=== PATIENT | male | born 1985 | race Caucasian/White ===

== ENCOUNTER 2017-05-23 09:34 | Emergency (ER) | payer BC ==
[2017-05-23 09:58] VITALS: BP 126/71
--- NOTE | 2017-05-23 10:16 | UC ---
Respiratory Complaint HPI - HPI Summary HPI Summary: Pt c/o cough X 3 days. Pt reports cough is worse with recumbent position. Denies fever or chills, SOB or wheezing. - History of Current Complaint Chief Complaint: UCRespiratory Stated Complaint: COUGH Time Seen by Provider: 05/23/17 09:48 Hx Obtained From: Patient Onset/Duration: Gradual Onset, Lasting Days - 3 Timing: Intermittent Episodes Severity Initially: Mild Severity Currently: Mild Character: Cough: Nonproductive Aggravating Factors: Recumbent Position Associated Signs And Symptoms: Positive: URI - Risk Factors Pulmonary Embolism Risk Factors: Negative Cardiac Risk Factors: Negative Pseudomonas Risk Factors: Negative Tuberculosis Risk Factors: Negative - Allergies/Home Medications Allergies/Adverse Reactions: Allergies Allergy/AdvReac Type Severity Reaction Status Date / Time seasonal Allergy Congestion Uncoded 05/23/17 09:58 Home Medications: Home Medications Diphenhydramine HCl [Benadryl Allergy] 25 05/23/17 [History] PMH/Surg Hx/FS Hx/Imm Hx Previously Healthy: Yes Other History Of: Negative For: HIV, Hepatitis B - Surgical History Surgical History: Yes Surgery Procedure, Year, and Place: HERNIA REPAIR - Family History Known Family History: Positive: None Negative: Cardiac Disease, Hypertension - Social History Occupation: Employed Full-time Lives: Alone Alcohol Use: Occasionally Substance Use Type: None Substance Use Comment - Amount & Last Used: HX OF [place] USE-STATES HE NO LONGER USES IT. Smoking Status (MU): Former Smoker Type: Cigarettes Amount Used/How Often: socially Have You Smoked in the Last Year: No When Did the Patient Quit Smoking/Using Tobacco: 1-2 YRS - Immunization History Most Recent Influenza Vaccination: not current Vaccination Up to Date: No Review of Systems Constitutional: Negative Skin: Negative Eyes: Negative ENT: Negative Respiratory: Cough Cardiovascular: Negative Gastrointestinal: Negative Genitourinary: Negative Motor: Negative Neurovascular: Negative Musculoskeletal: Negative Neurological: Negative Psychological: Negative Is Patient Immunocompromised?: No All Other Systems Reviewed And Are Negative: Yes Physical Exam Triage Information Reviewed: Yes Appearance: Well-Appearing Vital Signs: Initial Vital Signs Temp 98.1 F 05/23/17 09:48 Pulse 94 05/23/17 09:48 Resp 18 05/23/17 09:48 BP 126/71 05/23/17 09:48 Pulse Ox 100 05/23/17 09:48 Vital Signs Reviewed: Yes Eye Exam: Normal ENT Exam: Normal Dental Exam: Normal Neck exam: Normal Respiratory Exam: Normal Cardiovascular Exam: Normal Musculoskeletal Exam: Normal Neurological Exam: Normal Psychological Exam: Normal Skin Exam: Normal UC Diagnostic Evaluation - Laboratory O2 Sat by Pulse Oximetry: 100 Respiratory Course/Dx - Differential Dx/Diagnosis Differential Diagnosis/HQI/PQRI: Bronchitis, Other - viral syndrome, cough, reactive airway Provider Diagnoses: viral syndrome. cough Discharge - Discharge Plan Condition: Stable Disposition: HOME Prescriptions: Albuterol HFA INHALER* [Ventolin HFA Inhaler*] 1 - 2 puff INH Q6H PRN #1 mdi PRN Reason: Sob/Wheezing Benzonatate CAP* [Tessalon 100 MG CAP*] 100 mg PO Q8H PRN #30 cap PRN Reason: Cough predniSONE TAB* [Deltasone TAB*] 40 mg PO DAILY #10 tab Patient Education Materials: Viral Syndrome (ED), Acute Cough (ED) Referrals: Freddie Abraham MD [Primary Care Provider] - If Needed
== END 2017-05-23 10:13 | disposition home or self-care (01) ==
LOC: UCCORT 09:34
DX: B34.9 Viral infection, unspecified (principal); R05 Cough; F12.90 Cannabis use, unspecified, uncomplicated; Z87.891 Personal history of nicotine dependence
CPT/HCPCS: 99212; G0463